=== PATIENT | male | born 1950 | race Caucasian/White ===

== ENCOUNTER 2024-12-22 12:05 | Emergency (ER) | payer MEDICARE, SELFPAY ==
[2024-12-22 12:10] VITALS: BP 155/78; PULSE 81; TEMP 36.7; O2SAT 98; BMI 34.9
--- NOTE | 2024-12-22 12:15 | ED.GENADUL1 ---
HPI HPI - General Adult General Chief complaint: Fall Stated complaint: FALL Time Seen by Provider: 12/22/24 12:12 Source: patient Mode of arrival: ambulance Limitations: no limitations History of Present Illness HPI narrative: 74-year-old male presents to the emergency department for a chief complaint of left rib pain. He tripped and fell at a service center and landed with his arm on his ribs and hit the concrete. No other injury was sustained. No LOC. He does not have abdominal pain and he does not complain to me of shortness of breath. This happened just before coming into the emergency department and he was transported here by paramedics. Related Data Home Medications ?Medication ?Instructions ?Recorded ?Confirmed Tresiba FlexTouch U-100 12/22/24 aspirin 81 mg capsule 81 mg PO DAILY 12/22/24 12/22/24 atorvastatin 40 mg tablet 40 mg PO DAILY 12/22/24 12/22/24 carvedilol 12.5 mg tablet 12.5 mg PO BID 12/22/24 12/22/24 dapagliflozin propanediol 10 mg 10 mg PO DAILY 12/22/24 12/22/24 tablet (Farxiga) sertraline 100 mg tablet 100 mg PO DAILY 12/22/24 12/22/24 valsartan 40 mg tablet 10 mg PO DAILY 12/22/24 12/22/24 Previous Rx's ?Medication ?Instructions ?Recorded acetaminophen 300 mg-codeine 30 mg 1 tab PO Q6H PRN pain 5 days #20 12/22/24 tablet tabs ibuprofen 800 mg tablet 800 mg PO Q8H PRN pain #20 tabs 12/22/24 Allergies Allergy/AdvReac Type Severity Reaction Status Date / Time No Known Drug Allergies Allergy Verified 12/22/24 12:09 Opioid HPI Opioid Management Most Recent Opioid Data: No Data to Display Review of Systems ROS Narrative A ten point review of systems is negative except as noted above. PFSH PFSH Social History Little interest or pleasure in doing things: not at all Feeling down, depressed, or hopeless: not at all Exam Narrative Exam Narrative: Nurses note and vital signs reviewed and patient is not hypoxic. General: The patient appears uncomfortable and in no acute distress from a respiratory standpoint. Skin: Warm, dry, no pallor noted. There is no rash noted. Head: Normocephalic, atraumatic Eye: Normal conjunctiva, no drainage Ears, Nose, Mouth, and Throat: oral mucosa is moist. Nares patent. Cardiovascular: Regular Rate and Rhythm Respiratory: Breath sounds are equal. He has diffuse tenderness on the left chest wall without crepitus bruise rash or abrasion. Back: non-tender GI: Soft and nontender including the left upper quadrant Musculoskeletal: The patient has no evidence of calf tenderness, no pitting edema, symmetrical pulses noted bilaterally Neurological: A&O, normal speech Psychiatric: Cooperative Constitutional Vital Signs, click to edit/add: Last Vital Signs Temp 98.1 F 12/22/24 12:10 Pulse 81 12/22/24 12:10 Resp 20 12/22/24 12:10 BP 155/78 H 12/22/24 12:10 Pulse Ox 98 12/22/24 12:10 O2 Del Method Room Air 12/22/24 12:10 Course Vital Signs Vital signs: Vital Signs Temperature 98.1 F 12/22/24 12:10 Pulse Rate 81 12/22/24 12:10 Respiratory Rate 20 12/22/24 12:10 Blood Pressure 155/78 H 12/22/24 12:10 Pulse Oximetry 98 12/22/24 12:10 Oxygen Delivery Method Room Air 12/22/24 12:10 Temperature 98.1 F 12/22/24 12:10 Pulse Rate 81 12/22/24 12:10 Respiratory Rate 12/22/24 12:10 Blood Pressure 155/78 H 12/22/24 12:10 Pulse Oximetry 98 12/22/24 12:10 Oxygen Delivery Method Room Air 12/22/24 12:10 Medical Decision Making [facility] Narrative Medical decision making narrative: Left 8th and 9th rib fractures are identified. He was given an OPEP device as well as Tylenol 3 and ibuprofen here and prescribed same. Treatment diagnosis and follow-up were discussed with the patient. No evidence of pneumothorax. Differential Diagnosis Differential Diagnosis: Rib fracture, rib contusion, pneumothorax Imaging Data Rib x-ray: My impression: 8th and 9th rib fractures, no pneumothorax Discharge Plan Discharge Chief Complaint: Fall Clinical Impression: Left rib fracture Patient Disposition: Home, Self-Care Time of Disposition Decision: 13:06 Condition: Good Mode of Transportation: Private Vehicle Prescriptions / Home Meds: New acetaminophen-codeine 300-30 mg tablet 1 tab PO Q6H PRN (Reason: pain) 5 Days Qty: 20 0RF ibuprofen 800 mg tablet 800 mg PO Q8H PRN (Reason: pain) Qty: 20 0RF No Action aspirin 81 mg capsule 81 mg PO DAILY atorvastatin 40 mg tablet 40 mg PO DAILY carvedilol 12.5 mg tablet 12.5 mg PO BID Rx Instructions: must administer with a meal/food sertraline 100 mg tablet 100 mg PO DAILY dapagliflozin propanediol [Farxiga] 10 mg tablet 10 mg PO DAILY Tresiba FlexTouch U-100 valsartan 40 mg tablet 10 mg PO DAILY Print Language: Thai Instructions: Rib Fracture (ED) Referrals: Physician,Non-Staff, MD [Primary Care Provider] - 1 week
[2024-12-22] MEDS: ACETAMINOPHEN 300 MG/ 30 MG CODEINE TABLET 1 TAB PO (13:16)
[2024-12-22] MEDS: IBUPROFEN 400 MG TABLET 800 MG PO (13:16)
== END 2024-12-22 13:25 | disposition home or self-care (01) ==
PROVIDERS: Emergency Provider Emergency Medicine; PCP Family Medicine
DX: S22.32XA Fracture of one rib, left side, initial encounter for closed fracture (principal); S22.31XA Fracture of one rib, right side, initial encounter for closed fracture; W01.0XXA Fall on same level from slipping, tripping and stumbling without subsequent striking against object, initial encounter
CPT/HCPCS: 71101; 99284